=== PATIENT | female | born 1990 | race Caucasian/White ===

== ENCOUNTER → 2018-03-22 | Emergency (ER) | payer MEDICAID, OTHER ==
[~2018-03-22] VITALS: Ht 167.6 cm; Wt 100.0 kg
[~2018-03-22] MED LIST: BACITRACIN 0.9 GM PACKET OINTMENT TP ONE; CEPHALEXIN MONOHYDRATE 500 MG CAPSULE PO ONE; IBUPROFEN 800 MG TABLET PO ONE; LIDOCAINE 1%/EPI 1:200,000/PF 10 ML VIAL INJ ONE; LIDOCAINE 1%/EPI 1:200,000/PF 10 ML VIAL ONE; LIDOCAINE 2%/EPI 1:200,000/PF 20 ML VIAL INJ ONE; LIDOCAINE/PF 1% 30 ML VIAL INJ ONE; LORazepam 2 MG/ML VIAL IM ONE; LORazepam 2 MG/ML VIAL ONE; PERTUSS(ACELL),DIPH,TET VAC/PF 0.5 ML VIAL IM ONE
[2018-03-22 20:43] VITALS: BP 124/82
== END | disposition home or self-care (01) ==
LOC: EMS 20:06
DX: S56.221A Laceration of other flexor muscle, fascia and tendon at forearm level, right arm, initial encounter (principal); W26.0XXA Contact with knife, initial encounter; Y93.G1 Activity, food preparation and clean up; Y92.090 Kitchen in other non-institutional residence as the place of occurrence of the external cause; Y99.8 Other external cause status
CPT/HCPCS: 29125; 90471; 90715; 96372; 99284; J2060; J3490